=== PATIENT | male | born 1995 | race Caucasian/White ===

== ENCOUNTER 2017-12-17 18:30 | Emergency (ER) | payer OTHER ==
[~2017-12-17] VITALS: Ht 188 cm; Wt 79.4 kg
[2017-12-17] MEDS ORDERED: TRAMADOL 50 MG50 MG PO (19:18)
[2017-12-17 19:38] VITALS: BP 126/78
== END 2017-12-17 19:41 | disposition home or self-care (01) ==
LOC: ER 18:30
DX: S93.401A Sprain of unspecified ligament of right ankle, initial encounter (principal); X50.3XXA Overexertion from repetitive movements, initial encounter; Y93.79 Activity, other specified sports and athletics; Y92.89 Other specified places as the place of occurrence of the external cause; Y99.8 Other external cause status